=== PATIENT | female | born 1975 | race Caucasian/White ===

== ENCOUNTER → 2018-03-31 | Outpatient (CLI) | payer BC ==
[~2018-03-31] MED LIST: IOHEXOL 240 MG/ML 50ML VIAL. ONE
[2018-03-31] MEDS: IOHEXOL 300 MG/ML 75 ML VIAL. IV ONE (10:55)
--- NOTE | 2018-03-31 11:14 | RAD ---
CT abdomen and pelvis with contrast History: Left lower quadrant pain for 4 days Technique: After the administration of oral and intravenous contrast, CT imaging was performed of the abdomen and pelvis. Multiplanar images are reviewed. Exposure: One or more of the following individualized dose reduction techniques were utilized for this examination: 1. Automated exposure control 2. Adjustment of the mA and/or kV according to patient size 3. Use of iterative reconstruction technique. Contrast: 75 cc Omnipaque 300 Comparison: None Findings: As seen on the first image, there is somewhat nodular appearing focus of density of the left lower lobe about 1.9 cm in size. There is no significant abnormality of the liver, spleen, pancreas, adrenal glands. Both kidneys enhance without hydronephrosis. Gallbladder is present without obvious intraluminal abnormality by CT. There is no significant inflammatory change adjacent to the bowel. There is mild scattered colonic diverticulosis. Accurate evaluation of the colon is limited as not opacified with oral contrast during exam. Mild wall thickening of the distal descending colon to the mid sigmoid colon is difficult to exclude by this exam. There is no evidence of bowel obstruction or free fluid. Normal caliber appendix is visualized. There is IUD present. There is hypodense lesion with peripheral enhancement of the right adnexa about 2 cm in size. There is trace quantity of free fluid in the pelvis. There is very mild lumbar levoscoliosis. There is [id number] degenerative disc disease L3-4 through L5-S1. Impression: 1. Colon is not opacified with oral contrast during exam for accurate evaluation. Mild wall thickening distal descending colon to the mid sigmoid colon as can be seen with mild colitis in the appropriate clinical setting is difficult to exclude by this exam although no significant adjacent inflammatory change. There is mild scattered colonic diverticulosis. 2. There is somewhat nodular appearing focus of density of the visualized left lower lobe of the lung as seen on the first image. This may be due to infiltrate which would be more common in a patient this age although mass not excludable by this exam. 2 view chest evaluation or CT is recommended. 3. There is hypodense lesion with peripheral enhancement of the right adnexa, may be due to involuting cyst, less commonly tubo-ovarian abscess. There is trace free fluid in the pelvis. Electronically signed by: Derrick Norris MD (03/31/2018 11:10 AM) [email or web address]
== END | disposition home or self-care (01) ==
LOC: CT 09:28
PROVIDERS: ATTEND Nurse Practitioner Adult Health
DX: K57.30 Diverticulosis of large intestine without perforation or abscess without bleeding (principal); M51.37 Other intervertebral disc degeneration, lumbosacral region
CPT/HCPCS: 74177; Q9966; Q9967

== ENCOUNTER → 2018-04-01 | Outpatient (CLI) | payer BC ==
[~2018-04-01] MED LIST changes: -IOHEXOL 240 MG/ML 50ML VIAL. ONE; +IOHEXOL 300 MG/ML 75 ML VIAL. IV ONE
--- NOTE | 2018-04-01 10:27 | RAD ---
CT of the chest with IV contrast compared to CT of the abdomen and pelvis dated 03/31/2018 for abnormality seen on lung bases from CT of the abdomen and pelvis. TECHNIQUE AND FINDINGS: Contiguous helical 3 mm axial images are obtained from the thoracic inlet to the base of the diaphragm following demonstration of IV contrast. Sagittal and coronal reformations are evaluated. Within the right lower lobe medially, there is a ill-defined nodular appearing airspace opacity, with air bronchograms, measuring roughly 2.2 x 2.0 cm, the appearance of which is most suggestive of an inflammatory or infectious etiology, though atypical neoplasm cannot be excluded based on imaging from a single point in time. There is some contiguous hazy groundglass opacification extending to the posterior pleura which is irregularly thickened, also likely on an infectious or inflammatory basis. There are numerous 2 to 4 mm peripheral pleural or subpleural pulmonary nodules which are too small to adequately characterize, and which are disseminated throughout all lobes. A partial index includes left upper lobe on axial image #42, and #66, left lower lobe axial image #51, right upper lobe axial image #18, 20, 35, middle lobe axial image #66, and right lower lobe axial image #40, #57, and #72. These nodules are all too small to characterize, and could reflect active or antecedent granulomatous disease, or less likely tiny pulmonary metastasis. There is a patchy area of groundglass opacification within the right upper lobe laterally involving axial images #41 through 46, concerning for an area of active pneumonitis. No pleural effusion is identified. No suspicious axillary, hilar, or mediastinal lymphadenopathy is seen. Heart size within normal limits. Visualized upper abdominal organs are normal in appearance. No suspicious osteoblastic, or osteolytic bone lesions are seen. IMPRESSION: 1. 2.2 cm ill-defined nodular airspace opacity in the left medial lung base, with at least one small air bronchogram. This finding is most characteristic of an infectious or inflammatory process, though atypical malignancy cannot be excluded from the single point in time. Clinical correlation and follow-up CT scan in 3 months following empiric therapy would be useful. 2. Innumerable 2 to 4 mm pleural and subpleural nodules which are too small characterize. These most likely represent active or antecedent granulomatous changes. Small pulmonary metastasis or much less likely but not definitively excluded. Once again follow-up imaging to demonstrate stability is recommended. 3. Small groundglass opacity in the right upper lobe concerning for an active area of pneumonitis. Electronically signed by: Hector Padgett MD (04/01/2018 10:24 AM) [id number]
== END | disposition home or self-care (01) ==
LOC: CT 08:11
PROVIDERS: ATTEND Nurse Practitioner Adult Health
DX: R91.8 Other nonspecific abnormal finding of lung field (principal)
CPT/HCPCS: 71260; Q9967

== ENCOUNTER → 2018-07-15 | Outpatient (CLI) | payer BC ==
--- NOTE | 2018-07-15 15:19 | RAD ---
Examination: CT chest without contrast HISTORY: History of lung nodule follow-up COMPARISON: 04/01/2018 TECHNIQUE: Axial CT images of the chest were performed without contrast. Coronal and sagittal reformats are performed Exposure: One or more of the following individualized dose reduction techniques were utilized for this examination: 1. Automated exposure control 2. Adjustment of the mA and/or kV according to patient size 3. Use of iterative reconstruction technique FINDINGS: The central airways are patent. Coronary artery calcifications identified. The ascending aorta measures 3.5 cm in transverse dimension. The heart size grossly appears unremarkable. The previously visualized focus of airspace opacity identified in the left lower lobe of the lung is completely resolved. No evidence of pleural effusion or pneumothorax. Small subpleural nodules identified in the bilateral lungs the largest measuring 4 mm in the right upper lobe is similar to prior exam. The visualized noncontrasted liver, spleen, adrenals grossly appears unremarkable. No evidence of lytic bony destructive lesion. IMPRESSION: 1. The previously visualized focal airspace opacity identified in the left lower lobe of lung has completely resolved. 2. Unchanged multiple subpleural nodules with the largest measuring 4 mm in the right upper lobe similar to prior exam. Electronically signed by: Thomas Huitron MD (07/15/2018 3:15 PM) [id number]
== END | disposition home or self-care (01) ==
LOC: CT 09:43
PROVIDERS: ATTEND Internal Medicine Pulmonary Disease
DX: I25.10 Atherosclerotic heart disease of native coronary artery without angina pectoris (principal); R91.8 Other nonspecific abnormal finding of lung field
CPT/HCPCS: 71250

== ENCOUNTER → 2019-08-18 | Outpatient (CLI) | payer BC ==
--- NOTE | 2019-08-18 15:15 | RAD ---
CT of the chest without contrast 08/18/2019 INDICATION: History of lung nodule. Follow-up exam. COMPARISON STUDY: CT of the chest without contrast July 15, 2018. Discussion: Multidetector CT imaging of the chest was performed without contrast. No pneumothorax, pleural effusion, or acute focal consolidative infiltrate is identified. Limited noncontrast enhanced evaluation the mediastinum demonstrates no acute abnormality. No pathologically enlarged mediastinal adenopathy is appreciated. No new pulmonary nodule or mass is identified. Multiple subpleural nodules scattered throughout the bilateral lungs, largest measuring 4 mm the right upper lobe, are grossly unchanged. Limited visualization of the upper abdomen demonstrates no acute changes. No acute osseous changes are seen. IMPRESSION: 1. Stable scattered subpleural nodules bilaterally. Recommend CT surveillance to ensure 2 years of stability. 2. Otherwise stable chest CT DOSING PQRS STATEMENT: One or more of the following individualized dose reduction techniques were utilized for this examination: 1. Automated exposure control 2. Adjustment of the mA and/or kV according to patient size 3. Use of iterative reconstruction technique Electronically signed by: Darrel Jefferson MD (08/18/2019 3:12 PM) [id number]
== END | disposition home or self-care (01) ==
LOC: CT 08:42
PROVIDERS: ATTEND Internal Medicine Pulmonary Disease
DX: R91.8 Other nonspecific abnormal finding of lung field (principal); J40 Bronchitis, not specified as acute or chronic; Z87.891 Personal history of nicotine dependence
CPT/HCPCS: 71250